=== PATIENT | male | born 1950 | race Caucasian/White ===

== ENCOUNTER 2020-12-15 22:41 | Emergency (ER) | payer MEDICARE, BC ==
--- NOTE | 2020-12-15 23:11 | ED ---
Recheck HPI - General Chief Complaint: Recheck/Abnormal Lab/Rx Stated Complaint: Abn Labs Time Seen by Provider: 12/15/20 23:04 Source: patient, RN notes reviewed Mode of arrival: ambulatory Limitations: no limitations - History of Present Illness Initial Comments: 70-year-old male presents emergency Department with chief complaint of abnormal labs. Patient states he received a phone call stating that his potassium was 5.8. does not take any potassium supplements. Patient states she's had no new medication changes he does have a history of A. fib on Coumadin. Denies any active bleeding no chest pain no palpitations - Related Data Allergies Allergy/AdvReac Type Severity Reaction Status Date / Time No Known Allergies Allergy Verified 12/15/20 22:55 Review of Systems ROS Statement: Those systems with pertinent positive or pertinent negative responses have been documented in the HPI. ROS Other: All systems not noted in ROS Statement are negative. Past Medical History Past Medical History: Atrial Fibrillation, Diabetes Mellitus, Hyperlipidemia History of Any Multi-Drug Resistant Organisms: None Reported Past Surgical History: Cholecystectomy Past Psychological History: No Psychological Hx Reported Smoking Status: Never smoker Past Alcohol Use History: Rare Past Drug Use History: None Reported General Exam Limitations: no limitations General appearance: alert, in no apparent distress Head exam: Present: atraumatic, normocephalic, normal inspection Neck exam: Present: normal inspection. Absent: tenderness, meningismus, lymphadenopathy Respiratory exam: Present: normal lung sounds bilaterally. Absent: respiratory distress, wheezes, rales, rhonchi, stridor Cardiovascular Exam: Present: regular rate, normal rhythm, normal heart sounds. Absent: systolic murmur, diastolic murmur, rubs, gallop, clicks GI/Abdominal exam: Present: soft, normal bowel sounds. Absent: distended, tenderness, guarding, rebound, rigid Course Vital Signs 12/15/20 22:51 Temperature 98.1 F Pulse Rate 89 Respiratory 20 Rate Blood Pressure 127/87 O2 Sat by Pulse 99 Oximetry Medical Decision Making - Medical Decision Making Labs were rechecked there is no evidence of hyperkalemia patient be discharged in stable condition - Lab Data Result diagrams: 12/15/20 23:09 12/15/20 23:09 Lab Results 12/15/20 12/15/20 12/15/20 Range/Units 23:09 23:09 23:22 WBC 7.1 (3.8-10.6) k/uL RBC 5.02 (4.30-5.90) m/uL Hgb 15.7 (13.0-17.5) gm/dL Hct 45.9 (39.0-53.0) % MCV 91.5 (80.0-100.0) fL MCH 31.2 (25.0-35.0) pg MCHC 34.1 (31.0-37.0) g/dL RDW 13.7 (11.5-15.5) % Plt Count 311 (150-450) k/uL MPV 6.4 Neutrophils % 61 % Lymphocytes % 29 % Monocytes % 6 % Eosinophils % 1 % Basophils % 1 % Neutrophils # 4.4 (1.3-7.7) k/uL Lymphocytes # 2.1 (1.0-4.8) k/uL Monocytes # 0.4 (0-1.0) k/uL Eosinophils # 0.1 (0-0.7) k/uL Basophils # 0.1 (0-0.2) k/uL PT 19.0 H (9.0-12.0) sec INR 1.9 H (<1.2) Sodium 135 L (137-145) mmol/L Potassium 4.3 (3.5-5.1) mmol/L Chloride 101 (98-107) mmol/L Carbon Dioxide 24 (22-30) mmol/L Anion Gap 10 mmol/L BUN 16 (9-20) mg/dL Creatinine 0.83 (0.66-1.25) mg/dL Est GFR (CKD-EPI)AfAm >90 (>60 ml/min/1.73 sqM) Est GFR (CKD-EPI)NonAf 89 (>60 ml/min/1.73 sqM) Glucose 161 H (74-99) mg/dL Calcium 9.7 (8.4-10.2) mg/dL Disposition Clinical Impression: Encounter for laboratory examination Disposition: HOME SELF-CARE Condition: Stable Additional Instructions: Please return to the Emergency Department if symptoms worsen or any other concerns. Is patient prescribed a controlled substance at d/c from ED?: No Referrals: [facility],Clinic [Primary Care Provider] - 1-2 days Time of Disposition: 00:20
[2020-12-15 23:38] LABS: INR 1.9 (<1.2)
[2020-12-15 23:44] LABS: Basophils # (A) 0.1 k/uL (0-0.2); Basophils % (A) 1 %; Eosinophils # (A) 0.1 k/uL (0-0.7); Eosinophils % (A) 1 %; HCT 45.9 % (39.0-53.0); HGB 15.7 gm/dL (13.0-17.5); Lymphocytes # (A) 2.1 k/uL (1.0-4.8); Lymphocytes % (A) 29 %; MCH 31.2 pg (25.0-35.0); MCHC 34.1 g/dL (31.0-37.0); MCV 91.5 fL (80.0-100.0); Mean Platelet Volume 6.4; Monocytes # (A) 0.4 k/uL (0-1.0); Monocytes % (A) 6 %; Neutrophils # (A) 4.4 k/uL (1.3-7.7); Neutrophils % (A) 61 %; Platelet Count 311 k/uL (150-450); RBC 5.02 m/uL (4.30-5.90); RDW 13.7 % (11.5-15.5); WBC 7.1 k/uL (3.8-10.6)
[2020-12-15 23:51] LABS: African American GFR (CKD) >90 (>60 ml/min/1.73 sqM); Anion Gap 10 mmol/L; Blood Urea Nitrogen 16 mg/dL (9-20); Calcium 9.7 mg/dL (8.4-10.2); Carbon Dioxide 24 mmol/L (22-30); Chloride 101 mmol/L (98-107); Glucose 161 mg/dL (74-99); Non-African American GFR(CKD) 89 (>60 ml/min/1.73 sqM); Potassium 4.3 mmol/L (3.5-5.1); Sodium 135 mmol/L (137-145)
[2020-12-16 00:20] VITALS: BP 133/97; PULSE 82; RESP 18; TEMP 98
== END 2020-12-16 00:25 | disposition home or self-care (01) ==
LOC: EC 22:41
DX: Z00.00 Encounter for general adult medical examination without abnormal findings (principal); E11.9 Type 2 diabetes mellitus without complications; I48.91 Unspecified atrial fibrillation; Z79.01 Long term (current) use of anticoagulants
CPT/HCPCS: 36415; 80048; 85025; 85610; 99282

== ENCOUNTER 2024-01-07 11:44 | Emergency (ER) | payer MEDICARE, BC ==
[2024-01-07 12:12] VITALS: RESP 16
[2024-01-07 12:40] LABS: Appearance,Urine Cloudy (Clear); Bilirubin,Urine Negative (Negative); Blood,Urine Large (Negative); Color,Urine Light Yellow; Glucose,Urine (UA) 4+ (Negative); Ketones,Urine Negative (Negative); Leukocyte Esterase,Urine Large (Negative); Nitrite,Urine Negative (Negative); Protein,Urine Trace (Negative); RBC,Urine >182 /hpf (0-5); Specific Gravity,Urine 1.029 (1.001-1.035); Urobilinogen,Urine <2.0 mg/dL (<2.0); WBC,Urine >182 /hpf (0-5)
[2024-01-07] MEDS: PHENAZOPYRIDINE 200 MG TAB PO STA (12:46)
--- NOTE | 2024-01-07 13:20 | ED ---
General Adult HPI - General Chief complaint: Urogenital Stated complaint: Blood in urine Time Seen by Provider: 01/07/24 12:13 Source: patient Mode of arrival: ambulatory Limitations: no limitations - History of Present Illness Initial comments: 73-year-old male presents emergency department with sudden onset dysuria and hematuria. States that his symptoms started this morning. He has urge incontinence. He denies ever having symptoms like this before. No history of kidney stones. Denies any flank pain. Denies suprapubic pain. Does have pain at the end of voiding. No penile discharge. No testicular pain or swelling. Denies any changes with his bowel habits to include diarrhea, constipation, black or bloody stools. No other alleviating, precipitating or modifying factors - Related Data Previous Rx's Medication Instructions Recorded Cephalexin [Keflex] 500 mg PO Q6HR #28 cap 01/07/24 Phenazopyridine [Pyridium] 200 mg PO TID #6 tablet 01/07/24 Allergies Allergy/AdvReac Type Severity Reaction Status Date / Time No Known Allergies Allergy Verified 12/15/20 22:55 Review of Systems ROS Statement: Those systems with pertinent positive or pertinent negative responses have been documented in the HPI. ROS Other: All systems not noted in ROS Statement are negative. Past Medical History Past Medical History: Atrial Fibrillation, Diabetes Mellitus, Hyperlipidemia History of Any Multi-Drug Resistant Organisms: None Reported Past Surgical History: Cholecystectomy Past Psychological History: No Psychological Hx Reported Smoking Status: Never smoker Past Alcohol Use History: Rare Past Drug Use History: None Reported General Exam Limitations: no limitations General appearance: alert, in no apparent distress Head exam: Present: atraumatic, normocephalic, normal inspection Eye exam: Present: normal appearance, PERRL, EOMI. Absent: scleral icterus, conjunctival injection, periorbital swelling ENT exam: Present: normal exam, mucous membranes moist Neck exam: Present: normal inspection. Absent: tenderness, meningismus, ly mphadenopathy Respiratory exam: Present: normal lung sounds bilaterally. Absent: respiratory distress, wheezes, rales, rhonchi, stridor Cardiovascular Exam: Present: regular rate, normal rhythm, normal heart sounds. Absent: systolic murmur, diastolic murmur, rubs, gallop, clicks GI/Abdominal exam: Present: soft, normal bowel sounds. Absent: distended, tenderness, guarding, rebound, rigid Extremities exam: Present: normal inspection, full ROM, normal capillary refill. Absent: tenderness, pedal edema, joint swelling, calf tenderness Back exam: Present: normal inspection Neurological exam: Present: alert, oriented X3, CN II-XII intact Psychiatric exam: Present: normal affect, normal mood Skin exam: Present: warm, dry, intact, normal color. Absent: rash Course Vital Signs 01/07/24 01/07/24 12:10 13:32 Temperature 97.8 F 98.1 F Pulse Rate 87 82 Respiratory 16 16 Rate Blood Pressure 110/70 136/76 O2 Sat by Pulse 98 98 Oximetry Medical Decision Making - Medical Decision Making Was pt. sent in by a medical professional or institution (, PA, DRIER OPERATOR, urgent care, hospital, or fdc...) When possible be specific @ -No Did you speak to anyone other than the patient for history (EMS, parent, family, police, friend...)? What history was obtained from this source @ -No Did you review nursing and triage notes (agree or disagree)? Why? @ -I reviewed and agree with nursing and triage notes Were old charts reviewed (outside hosp., previous admission, EMS record, old EKG, old radiological studies, urgent care reports/EKG's, fdc records)? Report findings @ -No old charts were reviewed Differential Diagnosis (chest pain, altered mental status, abdominal pain women, abdominal pain men, vaginal bleeding, weakness, fever, dyspnea, syncope, headache, dizziness, GI bleed, back pain, seizure, CVA, palpatations, mental health, musculoskeletal)? @ -Differential Abdominal Pain Men: Appendicitis, cholecystitis, diverticulosis, ischemic bowel, pancreatitis, hepatitis, UTI, gastroenteritis, AAA, incarcerated hernia, bowel obstruction, constipation, inflammatory bowel, hepatitis, peptic ulcer disease, splenic infarction, perforated viscus, testicular torsion, this is not meant to be an all-inclusive list EKG interpreted by me (3pts min.). @ -Not done X-rays interpreted by me (1pt min.). @ -None done CT interpreted by me (1pt min.). @ -None done U/S interpreted by me (1pt. min.). @ -None done What testing was considered but not performed or refused? (CT, X-rays, U/S, labs)? Why? @ -None What meds were considered but not given or refused? Why? @ -None Did you discuss the management of the patient with other professionals (victor manuel valente i.e. , PA, DRIER OPERATOR, lab, RT, psych nurse, psychosocial rehabilitation counselor, hard hat diver, teacher, chief knowledge officer, case work aide)? Give summary @ -No Was smoking cessation discussed for >3mins.? @ -No Was critical care preformed (if so, how long)? @ -No Were there social determinants of health that impacted care today? How? (Homelessness, low income, unemployed, alcoholism, drug addiction, transportation, low edu. Level, literacy, decrease access to med. care, [facility], rehab)? @ -No Was there de-escalation of care discussed even if they declined (Discuss DNR or withdrawal of care, Hospice)? DNR status @ -No What co-morbidities impacted this encounter? (DM, HTN, Smoking, COPD, CAD, Cancer, CVA, ARF, Chemo, Hep., AIDS, mental health diagnosis, sleep apnea, morbid obesity)? @ -None Was patient admitted / discharged? Hospital course, mention meds given and route, prescriptions, significant lab abnormalities, going to OR and other pertinent info. @ -Upon arrival patient seen and evaluated. Thorough history was performed. Patient does provide a urine sample which is grossly positive for infection. Patient will be initiated on antibiotics. Also given Pyridium. Patient is to take the medications as directed. Follow-up with his doctor to ensure his symptoms have resolved and return for any new or worsening symptoms. Patient agreeable plan he was discharged in stable condition Undiagnosed new problem with uncertain prognosis? @ -No Drug Therapy requiring intensive monitoring for toxicity (Heparin, Nitro, Insulin, Cardizem)? @ -No Were any procedures done? @ -No Diagnosis/symptom? @ -Acute hematuria, acute UTI Acute, or Chronic, or Acute on Chronic? @ -Acute Uncomplicated (without systemic symptoms) or Complicated (systemic symptoms)? @ -Complicated Side effects of treatment? @ -No Exacerbation, Progression, or Severe Exacerbation? @ -No Poses a threat to life or bodily function? How? (Chest pain, [place], [place], pneumonia, PE, COPD, DKA, ARF, appy, cholecystitis, CVA, Diverticulitis, Homicidal, Suicidal, threat to staff... and all critical care pts) @ -No - Lab Data Lab Results 01/07/24 Range/Units 12:28 Urine Color Light Yellow Urine Appearance Cloudy (Clear) Urine pH 5.0 (5.0-8.0) Ur Specific [place] 1.029 (1.001-1.035) Urine Protein Trace H (Negative) Urine Glucose (UA) 4+ H (Negative) Urine Ketones Negative (Negative) Urine Blood Large H (Negative) Urine Nitrite Negative (Negative) Urine Bilirubin Negative (Negative) Urine Urobilinogen <2.0 (<2.0) mg/dL Ur Leukocyte Esterase Large H (Negative) Urine RBC >182 H (0-5) /hpf Urine WBC >182 H (0-5) /hpf Disposition Clinical Impression: Abnormal urinalysis, UTI (urinary tract infection) Disposition: HOME SELF-CARE Condition: Stable Instructions (If sedation given, give patient instructions): Urinary Tract Infection in Men (ED) Additional Instructions: Take the medications as prescribed. Follow up with your doctor to have repeat sampling performed. Prescriptions: Cephalexin [Keflex] 500 mg PO Q6HR #28 cap Phenazopyridine [Pyridium] 200 mg PO TID #6 tablet Is patient prescribed a controlled substance at d/c from ED?: No Referrals: [facility],Clinic [Primary Care Provider] - 1-2 days Time of Disposition: 13:20
[2024-01-07 13:34] VITALS: BP 136/76; PULSE 82; TEMP 98.1
== END 2024-01-07 12:22 | disposition home or self-care (01) ==
LOC: EC 11:44
DX: R31.9 Hematuria, unspecified
CPT/HCPCS: 81001; 87077; 87086; 87186; 99283

== ENCOUNTER 2024-05-08 10:12 | Emergency (ER) | payer MEDICARE, BC ==
[2024-05-08 10:41] VITALS: RESP 18
--- NOTE | 2024-05-08 10:46 | ED ---
General Adult HPI - General Chief complaint: Urogenital Stated complaint: UTI Time Seen by Provider: 05/08/24 10:45 Source: patient, RN notes reviewed, old records reviewed Mode of arrival: ambulatory Limitations: no limitations - History of Present Illness Initial comments: 73-year-old male presenting with urinary frequency and urgency. Patient denies dysuria, states he has been drinking a lot of water and has been off of his glipizide and metformin. Patient was sent by OR for evaluation of UTI versus urinary retention. Patient states he has had prostate issues in the past. Patient is a diabetic. No fever. No significant abdominal pain. - Related Data Previous Rx's Medication Instructions Recorded Cephalexin [Keflex] 500 mg PO Q6HR #28 cap 01/07/24 Phenazopyridine [Pyridium] 200 mg PO TID #6 tablet 01/07/24 Allergies Allergy/AdvReac Type Severity Reaction Status Date / Time No Known Allergies Allergy Verified 05/08/24 10:37 Review of Systems ROS Statement: Those systems with pertinent positive or pertinent negative responses have been documented in the HPI. ROS Other: All systems not noted in ROS Statement are negative. Past Medical History Past Medical History: Atrial Fibrillation, Diabetes Mellitus, Hyperlipidemia History of Any Multi-Drug Resistant Organisms: None Reported Past Surgical History: Cholecystectomy Past Psychological History: No Psychological Hx Reported Smoking Status: Never smoker Past Alcohol Use History: Rare Past Drug Use History: None Reported General Exam Limitations: no limitations General appearance: alert, in no apparent distress Head exam: Present: atraumatic, normocephalic Eye exam: Present: normal appearance, PERRL ENT exam: Present: normal exam Neck exam: Present: normal inspection. Absent: tenderness, meningismus Respiratory exam: Present: normal lung sounds bilaterally. Absent: respiratory distress, wheezes Cardiovascular Exam: Present: regular rate, normal rhythm GI/Abdominal exam: Present: soft. Absent: distended, tenderness Neurological exam: Present: alert, oriented X3 Psychiatric exam: Present: normal affect, normal mood Skin exam: Present: warm, dry, intact Course Vital Signs 05/08/24 10:37 Temperature 97.3 F L Pulse Rate 89 Respiratory 18 Rate Blood Pressure 118/80 O2 Sat by Pulse 99 Oximetry - Reevaluation(s) Reevaluation #1: 05/08/24 12:20 Bladder scan revealing maximum of 200 cc of urine Medical Decision Making - Medical Decision Making Was pt. sent in by a medical professional or institution (MICHELLE Whyte, ASSOCIATE PRODUCER, urgent care, hospital, or senior living...) When possible be specific @ -No Did you speak to anyone other than the patient for history (EMS, parent, family, police, friend...)? What history was obtained from this source @ -No Did you review nursing and triage notes (agree or disagree)? Why? @ -I reviewed and agree with nursing and triage notes Were old charts reviewed (outside hosp., previous admission, EMS record, old EKG , old radiological studies, urgent care reports/EKG's, senior living records)? Report findings @ -No old charts were reviewed Differential Diagnosis: Urinary retention, UTI, hyperglycemia EKG interpreted by me (3pts min.). @ -As above X-rays interpreted by me (1pt min.). @ -None done CT interpreted by me (1pt min.). @ -None done U/S interpreted by me (1pt. min.). @ -None done What testing was considered but not performed or refused? (CT, X-rays, U/S, labs)? Why? @ -None What meds were considered but not given or refused? Why? @ -None Did you discuss the management of the patient with other professionals (professionals i.e. MICHELLE Whyte, ASSOCIATE PRODUCER, lab, RT, psych nurse, social and political studies professor, animal bounty hunter, teacher, credit officer, shoe parts caser)? Give summary @ -No Was smoking cessation discussed for >3mins.? @ -No Was critical care preformed (if so, how long)? @ -No Were there social determinants of health that impacted care today? How? (Homelessness, low income, unemployed, alcoholism, drug addiction, transportation, low edu. Level, literacy, decrease access to med. care, [facility], rehab)? @ -No Was there de-escalation of care discussed even if they declined (Discuss DNR or withdrawal of care, Hospice)? DNR status @ -No What co-morbidities impacted this encounter? (DM, HTN, Smoking, COPD, CAD, Cancer, CVA, ARF, Chemo, Hep., AIDS, mental health diagnosis, sleep apnea, morbid obesity)? @ -None Was patient admitted / discharged? Hospital course, mention meds given and route, prescriptions, significant lab abnormalities, going to OR and other pertinent info. @ -73-year-old male with urinary frequency and urgency. Patient is a diabetic and has been off of his glipizide and metformin. He has no dysuria. No fever. No lower abdominal pain. Bladder scan reveals maximum urine volume of 200. He has a urinalysis which shows 4+ glucose without signs of infection. His blood glucose is 300. I suspect his urinary frequency and urgency is from hyperglycemia. He is instructed to start his glipizide and metformin again which she has been off of. And he should follow-up with his primary care provider. Undiagnosed new problem with uncertain prognosis? @ -No Drug Therapy requiring intensive monitoring for toxicity (Heparin, Nitro, Insulin, Cardizem)? @ -No Were any procedures done? @ -No Diagnosis/symptom? @Polyuria, polydipsia, hyperglycemia Acute, or Chronic, or Acute on Chronic? @ -[Acute on chronic Uncomplicated (without systemic symptoms) or Complicated (systemic symptoms)? @ -Default Side effects of treatment? @ -No Exacerbation, Progression, or Severe Exacerbation? @ -No Poses a threat to life or bodily function? How? (Chest pain, [place], [place], pneumonia, PE, COPD, DKA, ARF, appy, cholecystitis, CVA, Diverticulitis, Homicidal, Suicidal, threat to staff... and all critical care pts) @ -No - Lab Data Lab Results 05/08/24 05/08/24 Range/Units 11:07 12:25 POC Glucose (mg/dL) 308 H (70-110) mg/dL POC Glu Back Gray Cloth Washer ID Mindy Caldwell Urine Color Colorless Urine Appearance Clear (Clear) Urine pH 5.0 (5.0-8.0) Ur Specific [place] 1.031 (1.001-1.035) Urine Protein Negative (Negative) Urine Glucose (UA) 4+ H (Negative) Urine Ketones Trace H (Negative) Urine Blood Negative (Negative) Urine Nitrite Negative (Negative) Urine Bilirubin Negative (Negative) Urine Urobilinogen <2.0 (<2.0) mg/dL Ur Leukocyte Esterase Negative (Negative) Disposition Clinical Impression: Hyperglycemia Disposition: HOME SELF-CARE Condition: Fair Instructions (If sedation given, give patient instructions): Diabetic Hyperglycemia (ED) Additional Instructions: Please continue to drink plenty of water. Please take your diabetic medications as prescribed. Is patient prescribed a controlled substance at d/c from ED?: No Referrals: Froilan Burrell DO [Primary Care Provider] - 1-2 days Time of Disposition: 12:40
[2024-05-08 12:01] LABS: Appearance,Urine Clear (Clear); Bilirubin,Urine Negative (Negative); Blood,Urine Negative (Negative); Color,Urine Colorless; Glucose,Urine (UA) 4+ (Negative); Ketones,Urine Trace (Negative); Leukocyte Esterase,Urine Negative (Negative); Nitrite,Urine Negative (Negative); Protein,Urine Negative (Negative); Specific Gravity,Urine 1.031 (1.001-1.035); Urobilinogen,Urine <2.0 mg/dL (<2.0)
[2024-05-08 12:26] LABS: Glucose,Whole Blood 308 mg/dL (70-110)
[2024-05-08 13:40] VITALS: BP 131/96; PULSE 92; TEMP 98
== END 2024-05-08 13:56 | disposition home or self-care (01) ==
LOC: EC 10:12
DX: R73.9 Hyperglycemia, unspecified (principal); R35.89 Other polyuria; R63.1 Polydipsia; Z90.49 Acquired absence of other specified parts of digestive tract
CPT/HCPCS: 36415; 51798; 81003; 99284

== ENCOUNTER 2024-06-13 09:41 | Observation (INO) | payer OTHER, MEDICARE, BC ==
[2024-06-13 09:46] LABS: Glucose,Whole Blood 174 mg/dL (70-110)
[2024-06-13 10:19] LABS: Basophils % (A) 0 %; Eosinophils # (A) 0.1 k/uL (0-0.7); Eosinophils % (A) 1 %; HCT 44.2 % (39.0-53.0); HGB 13.9 gm/dL (13.0-17.5); Lymphocytes # (A) 0.9 k/uL (1.0-4.8); Lymphocytes % (A) 9 %; MCH 29.6 pg (25.0-35.0); MCHC 31.5 g/dL (31.0-37.0); MCV 94.2 fL (80.0-100.0); Mean Platelet Volume 6.5; Monocytes # (A) 0.6 k/uL (0-1.0); Monocytes % (A) 6 %; Neutrophils # (A) 8.3 k/uL (1.3-7.7); Neutrophils % (A) 82 %; Platelet Count 428 k/uL (150-450); RBC 4.69 m/uL (4.30-5.90); RDW 13.9 % (11.5-15.5); WBC 10.1 k/uL (3.8-10.6)
[2024-06-13 10:20] LABS: VBG PH 7.35 (7.31-7.41)
[2024-06-13 10:37] LABS: ALT 17 U/L (4-49); AST 21 U/L (17-59); African American GFR (CKD) >90 (>60 ml/min/1.73 sqM); Albumin 3.8 g/dL (3.5-5.0); Alkaline Phosphatase 106 U/L (38-126); Anion Gap 18 mmol/L; Blood Urea Nitrogen 12 mg/dL (9-20); Calcium 9.5 mg/dL (8.4-10.2); Carbon Dioxide 17 mmol/L (22-30); Chloride 98 mmol/L (98-107); Glucose 230 mg/dL (74-99); Non-African American GFR(CKD) >90 (>60 ml/min/1.73 sqM); Potassium 5.1 mmol/L (3.5-5.1); Sodium 133 mmol/L (137-145); Total Bilirubin 0.8 mg/dL (0.2-1.3); Total Protein 6.8 g/dL (6.3-8.2)
--- NOTE | 2024-06-13 10:39 | ED ---
General Adult HPI - General Chief complaint: Recheck/Abnormal Lab/Rx Stated complaint: Abn labs Time Seen by Provider: 06/13/24 09:42 Source: patient, RN notes reviewed, old records reviewed Mode of arrival: ambulatory Limitations: no limitations - History of Present Illness Initial comments: 73-year-old male presenting with elevated blood sugar. [facility]. Patient is currently on metformin, glipizide, and was ordered to start Ozempic but has not started this medication yet. He denies vomiting. He states he has been more thirsty lately. No fever. - Related Data Previous Rx's Medication Instructions Recorded Cephalexin [Keflex] 500 mg PO Q6HR #28 cap 01/07/24 Phenazopyridine [Pyridium] 200 mg PO TID #6 tablet 01/07/24 Allergies Allergy/AdvReac Type Severity Reaction Status Date / Time No Known Allergies Allergy Verified 06/13/24 09:44 Review of Systems ROS Statement: Those systems with pertinent positive or pertinent negative responses have been documented in the HPI. ROS Other: All systems not noted in ROS Statement are negative. Past Medical History Past Medical History: Atrial Fibrillation, Diabetes Mellitus, Hyperlipidemia History of Any Multi-Drug Resistant Organisms: None Reported Past Surgical History: Cholecystectomy Past Psychological History: No Psychological Hx Reported Smoking Status: Never smoker Past Alcohol Use History: Rare Past Drug Use History: None Reported General Exam Limitations: no limitations General appearance: alert, in no apparent distress Head exam: Present: atraumatic, normocephalic Eye exam: Present: normal appearance, PERRL ENT exam: Present: mucous membranes moist Neck exam: Present: normal inspection. Absent: tenderness, meningismus Respiratory exam: Present: normal lung sounds bilaterally. Absent: respiratory distress, wheezes Cardiovascular Exam: Present: regular rate, normal rhythm GI/Abdominal exam: Present: soft. Absent: distended, tenderness, guarding Extremities exam: Present: normal inspection, normal capillary refill Neurological exam: Present: alert, oriented X3 Psychiatric exam: Present: normal affect, normal mood Skin exam: Present: warm, dry, intact. Absent: cyanosis, diaphoretic Course Vital Signs 06/13/24 09:42 Temperature 97.4 F L Pulse Rate 58 L Respiratory 20 Rate Blood Pressure 149/84 O2 Sat by Pulse 99 Oximetry Medical Decision Making - Medical Decision Making Was pt. sent in by a medical professional or institution (MICHELLE Whyte, [employer]ER, urgent care, hospital, or [place] health care facility...) When possible be specific @ -No Did you speak to anyone other than the patient for history (EMS, parent, family, police, friend...)? What history was obtained from this source @ -No Did you review nursing and triage notes (agree or disagree)? Why? @ -I reviewed and agree with nursing and triage notes Were old charts reviewed (outside hosp., previous admission, EMS record, old EKG, old radiological studies, urgent care reports/EKG's, [place] health care facility records)? Report findings @ -No old charts were reviewed Differential Diagnosis : DKA, dehydration, hyperglycemia EKG interpreted by me (3pts min.). @ -As above X-rays interpreted by me (1pt min.). @ -None done CT interpreted by me (1pt min.). @ -None done U/S interpreted by me (1pt. min.). @ -None done What testing was considered but not performed or refused? (CT, X-rays, U/S, labs)? Why? @ -None What meds were considered but not given or refused? Why? @ -None Did you discuss the management of the patient with other professionals (professionals i.e. MICHELLE Whyte, [employer]CTURER, lab, RT, psych nurse, social media director, auricular acupuncturist, teacher, aviation ordnance officer, insurance case manager)? Give summary @ -[Dr. Landa Was smoking cessation discussed for >3mins.? @ -No Was critical care preformed (if so, how long)? @ -No Were there social determinants of health that impacted care today? How? (Homelessness, low income, unemployed, alcoholism, drug addiction, transportation, low edu. Level, literacy, decrease access to med. care, [facility], rehab)? @ -No Was there de-escalation of care discussed even if they declined (Discuss DNR or withdrawal of care, Hospice)? DNR status @ -No What co-morbidities impacted this encounter? (DM, HTN, Smoking, COPD, CAD, Cancer, CVA, ARF, Chemo, Hep., AIDS, mental health diagnosis, sleep apnea, morbid obesity)? @ -Diabetes Was patient admitted / discharged? Hospital course, mention meds given and route, prescriptions, significant lab abnormalities, going to OR and other pertinent info. @ -[73-year-old male presenting with concern for DKA due to abnormal labs on outpatient testing. Patient's blood sugars 230. He has a sodium 133. He has a CO2 of 17 and an anion gap of 18. He is acetone positive. These labs represent mild diabetic ketoacidosis. Patient is given IV fluid and IV insulin. Redraw of laboratory test will be performed and 2 hours after administration of insulin and fluids. Patient admitted to [facility] for further evaluation and treatment of mild DKA. Undiagnosed new problem with uncertain prognosis? @ -No Drug Therapy requiring intensive monitoring for toxicity (Heparin, Nitro, Insulin, Cardizem)? @ -No Were any procedures done? @ -No Diagnosis/symptom? @ -[DKA Acute, or Chronic, or Acute on Chronic? @ -acute Uncomplicated (without systemic symptoms) or Complicated (systemic symptoms)? @ -Default Side effects of treatment? @ -No Exacerbation, Progression, or Severe Exacerbation? @ -No Poses a threat to life or bodily function? How? (Chest pain, [place], [place], pneumonia, PE, COPD, DKA, ARF, appy, cholecystitis, CVA, Diverticulitis, Homicidal, Suicidal, threat to staff... and all critical care pts) @ -yes, DKA - Lab Data Result diagrams: 06/13/24 10:07 06/13/24 10:07 Lab Results 06/13/24 06/13/24 06/13/24 Range/Units 09:45 10:07 10:07 WBC 10.1 (3.8-10.6) k/uL RBC 4.69 (4.30-5.90) m/uL Hgb 13.9 (13.0-17.5) gm/dL Hct 44.2 (39.0-53.0) % MCV 94.2 (80.0-100.0) fL MCH 29.6 (25.0-35.0) pg MCHC 31.5 (31.0-37.0) g/dL RDW 13.9 (11.5-15.5) % Plt Count 428 (150-450) k/uL MPV 6.5 Neutrophils % 82 % Lymphocytes % 9 % Monocytes % 6 % Eosinophils % 1 % Basophils % 0 % Neutrophils # 8.3 H (1.3-7.7) k/uL Lymphocytes # 0.9 L (1.0-4.8) k/uL Monocytes # 0.6 (0-1.0) k/uL Eosinophils # 0.1 (0-0.7) k/uL Basophils # 0.0 (0-0.2) k/uL VBG pH (7.31-7.41) VBG pCO2 (37-51) mmHg VBG HCO3 (24-28) mmol/L Sodium 133 L (137-145) mmol/L Potassium 5.1 (3.5-5.1) mmol/L Chloride 98 (98-107) mmol/L Carbon Dioxide 17 L (22-30) mmol/L Anion Gap 18 mmol/L BUN 12 (9-20) mg/dL Creatinine 0.62 L (0.66-1.25) mg/dL Est GFR (CKD-EPI)AfAm >90 (>60 ml/min/1.73 sqM) Est GFR (CKD-EPI)NonAf >90 (>60 ml/min/1.73 sqM) Glucose 230 H (74-99) mg/dL POC Glucose (mg/dL) 174 H (70-110) mg/dL POC Glu Motorcycle Designer ID Padmini Lindsay Calcium 9.5 (8.4-10.2) mg/dL Total Bilirubin 0.8 (0.2-1.3) mg/dL AST 21 (17-59) U/L ALT 17 (4-49) U/L Alkaline Phosphatase 106 (38-126) U/L Total Protein 6.8 (6.3-8.2) g/dL Albumin 3.8 (3.5-5.0) g/dL Acetone, Qual Positive (Negative) 06/13/24 Range/Units 10:07 WBC (3.8-10.6) k/uL RBC (4.30-5.90) m/uL Hgb (13.0-17.5) gm/dL Hct (39.0-53.0) % MCV (80.0-100.0) fL MCH (25.0-35.0) pg MCHC (31.0-37.0) g/dL RDW (11.5-15.5) % Plt Count (150-450) k/uL MPV Neutrophils % % Lymphocytes % % Monocytes % % Eosinophils % % Basophils % % Neutrophils # (1.3-7.7) k/uL Lymphocytes # (1.0-4.8) k/uL Monocytes # (0-1.0) k/uL Eosinophils # (0-0.7) k/uL Basophils # (0-0.2) k/uL VBG pH 7.35 (7.31-7.41) VBG pCO2 35 L (37-51) mmHg VBG HCO3 19 L (24-28) mmol/L Sodium (137-145) mmol/L Potassium (3.5-5.1) mmol/L Chloride (98-107) mmol/L Carbon Dioxide (22-30) mmol/L Anion Gap mmol/L BUN (9-20) mg/dL Creatinine (0.66-1.25) mg/dL Est GFR (CKD-EPI)AfAm (>60 ml/min/1.73 sqM) Est GFR (CKD-EPI)NonAf (>60 ml/min/1.73 sqM) Glucose (74-99) mg/dL POC Glucose (mg/dL) (70-110) mg/dL POC Glu Motorcycle Designer ID Calcium (8.4-10.2) mg/dL Total Bilirubin (0.2-1.3) mg/dL AST (17-59) U/L ALT (4-49) U/L Alkaline Phosphatase (38-126) U/L Total Protein (6.3-8.2) g/dL Albumin (3.5-5.0) g/dL Acetone, Qual (Negative) Disposition Clinical Impression: DKA (diabetic ketoacidosis) Disposition: ADMITTED IP TO THIS HOSP Condition: Stable Is patient prescribed a controlled substance at d/c from ED?: No Referrals: Froilan Burrell DO [Primary Care Provider] - 1-2 days Time of Disposition: 12:05
[2024-06-13] MEDS: SODIUM CHLORIDE 0.9% 1,000 ML IV ONE ×2 (10:47→16:22)
[2024-06-13 11:31] LABS: Appearance,Urine Clear (Clear); Bilirubin,Urine Negative (Negative); Blood,Urine Negative (Negative); Color,Urine Colorless; Glucose,Urine (UA) 4+ (Negative); Leukocyte Esterase,Urine Negative (Negative); Nitrite,Urine Negative (Negative); Protein,Urine Negative (Negative); Specific Gravity,Urine 1.035 (1.001-1.035); Urobilinogen,Urine <2.0 mg/dL (<2.0)
[2024-06-13] MEDS: INSULIN REGULAR 100 UNIT/ML VIAL (IV) IV ONE ×2 (11:54→16:22)
[2024-06-13] MEDS: SODIUM CHLORIDE 0.9% 500 ML 500 ML IV ONE (12:01)
[2024-06-13] MEDS ORDERED: ACETAMINOPHEN TAB 325 MG TAB PO PRN (12:01)
[2024-06-13] MEDS ORDERED: NALOXONE 0.4 MG/ML 1 ML VIAL IV PRN (12:01)
[2024-06-13] MEDS: SODIUM CHLORIDE 0.9% 1,000 ML IV SCH (12:14)
[2024-06-13 12:16] LABS: Ketones,Urine 2+ (Negative)
[2024-06-13] MEDS ORDERED: ONDANSETRON 4 MG/2 ML VIAL IVP PRN (13:32)
[2024-06-13] MEDS ORDERED: MELATONIN 3 MG TABLET PO PRN (13:32)
[2024-06-13 14:29] LABS: Glucose,Whole Blood 213 mg/dL (70-110)
[2024-06-13] MEDS ORDERED: DEXTROSE 50% SYRINGE 50 ML IVP PRN ×2 (14:34)
--- NOTE | 2024-06-13 14:35 | P.HPIM ---
History of Present Illness H&P Date: 06/13/24 73 year old M with PMH of DM, A-Fib, HLD presents to the ED after being told to come [facility] for [facility] work. Patient reports painful urination with urinary frequency, hesitancy and weak flow. He reports his A1c to be around 13. He reports BG ranging usually in the 200s. He is on Metformin and Glipizide. He is supposed to start taking Ozempic but has not had the chance to start yet. He denies any headache, LE edema, N/V, fever or chills, abdominal pain, chest pain, shortness of breath, palpitations, changes in bowel habits. No changes in appetite or weight. No numbness/weakness/tinging of the extremities. In the ED he underwent extensive evaluation. BP 149/84, HR 58, T 97.4F, RR 20, 99% on RA. CBC, Coag panel, CMP significant for Na 133, bicarb 17, Cr 0.62, glu 230. UA 4+ glucose and 2+ ketones. Acetone positive. Given 5 units IV insulin and admitted for further workup and management. General: non toxic, no distress, appears at stated age Derm: warm, dry Head: atraumatic, normocephalic, symmetric Mouth: no lip lesion, mucus membranes moist Cardiovascular: S1S2 reg, no murmur Lungs: Clear to auscultation bilaterally, no rales , no accessory muscle use Ext: no gross muscle atrophy, no edema, no contractures Neuro: no focal neuro deficits Psych: Alert and oriented. Based on my assessment of this patient, this patient meets a high complexity level of care. Euglycemic DKA: Likely related to Jardiance. Status post 5 units IV insulin. Repeat BMP pending. Continue NS at 100 cc/hr. ISS with accuchecks ACHS. Hypoglycemic precautions. HTN: Losartan 25 mg PO QD. Metoprolol 12.5 mg PO BID. HLD: Lovastatin 40 mg PO QD. Depression and Anxiety: Prozac 60 mg PO QD. Xanax 0.25 mg PO BID PRN. A-Fib: Eliquis 5 mg PO BID. Metoprolol as above. GERD: Protonix 40 mg PO BID. BPH: Folmax 0.4 mg PO QD. CODE STATUS: FULL CODE. DVT Prophylaxis: Eliquis. GI Prophylaxis: Protonix. Designated medical POA if patient is not able to make medical decisions for themselves: I have reviewed the following job service consultant notes: ED note. I have reviewed the results of the following tests: As above. I have ordered the following tests: As above. I have discussed the care of this patient with the following independent historian: I have independently interpreted the following test below: I have discussed the management of this patient with the following physician: Past Medical History Past Medical History: Atrial Fibrillation, Diabetes Mellitus, Hyperlipidemia History of Any Multi-Drug Resistant Organisms: None Reported Past Surgical History: Cholecystectomy Past Psychological History: No Psychological Hx Reported Smoking Status: Never smoker Past Alcohol Use History: Rare Past Drug Use History: None Reported Medications and Allergies Home Medications Medication Instructions Recorded Confirmed Type ALPRAZolam [Xanax] 0.25 mg PO BID PRN 06/13/24 06/13/24 History Apixaban [Eliquis] 5 mg PO BID 06/13/24 06/13/24 History Cephalexin [Keflex] 500 mg PO Q12HR 06/13/24 06/13/24 History Cyclobenzaprine [Flexeril] 10 mg PO HS PRN 06/13/24 06/13/24 History Empagliflozin [Jardiance] 25 mg PO DAILY 06/13/24 06/13/24 History FLUoxetine HCL [PROzac] 60 mg PO DAILY 06/13/24 06/13/24 History Fluticasone Nasal [place] [Flonase 1 spray EA NOSTRIL DAILY 06/13/24 06/13/24 History Nasal [place]] Losartan [Cozaar] 25 mg PO DAILY 06/13/24 06/13/24 History Lovastatin [Mevacor] 80 mg PO W/SUPPER 06/13/24 06/13/24 History Metoprolol Tartrate [Lopressor] 12.5 mg PO BID 06/13/24 06/13/24 History Pantoprazole [Protonix] 40 mg PO BID 06/13/24 06/13/24 History Semaglutide [Ozempic] 0.25 mg SQ Q7D 06/13/24 06/13/24 History Sildenafil Citrate [Viagra] 100 mg PO DAILY PRN 06/13/24 06/13/24 History Tamsulosin [Flomax] 0.4 mg PO DAILY 06/13/24 06/13/24 History glipiZIDE [Glucotrol] 20 mg PO AC-BID 06/13/24 06/13/24 History metFORMIN HCL [Glucophage] 1,000 mg PO BID 06/13/24 06/13/24 History Allergies Allergy/AdvReac Type Severity Reaction Status Date / Time lisinopril AdvReac Cough Verified 06/13/24 14:18 Physical Exam Vitals: Vital Signs Temp Pulse Resp BP Pulse Ox 06/13/24 09:42 97.4 F L 58 L 20 149/84 99 Intake and Output 06/12/24 06/13/24 06/13/24 22:59 06:59 14:59 Other: Weight 98.883 kg Results CBC & Chem 7: 06/13/24 10:07 06/13/24 10:07 Labs: Abnormal Lab Results - Last 24 Hours (Table) 06/13/24 06/13/24 06/13/24 Range/Units 09:45 10:07 10:07 Neutrophils # 8.3 H (1.3-7.7) k/uL Lymphocytes # 0.9 L (1.0-4.8) k/uL VBG pCO2 (37-51) mmHg VBG HCO3 (24-28) mmol/L Sodium 133 L (137-145) mmol/L Carbon Dioxide 17 L (22-30) mmol/L Creatinine 0.62 L (0.66-1.25) mg/dL Glucose 230 H (74-99) mg/dL POC Glucose (mg/dL) 174 H (70-110) mg/dL Urine Glucose (UA) (Negative) Urine Ketones (Negative) 06/13/24 06/13/24 Range/Units 10:07 11:01 Neutrophils # (1.3-7.7) k/uL Lymphocytes # (1.0-4.8) k/uL VBG pCO2 35 L (37-51) mmHg VBG HCO3 19 L (24-28) mmol/L Sodium (137-145) mmol/L Carbon Dioxide (22-30) mmol/L Creatinine (0.66-1.25) mg/dL Glucose (74-99) mg/dL POC Glucose (mg/dL) (70-110) mg/dL Urine Glucose (UA) 4+ H (Negative) Urine Ketones 2+ H (Negative)
[2024-06-13 15:07] LABS: Potassium 4.3 mmol/L (3.5-5.1)
[2024-06-13 15:08] LABS: African American GFR (CKD) >90 (>60 ml/min/1.73 sqM); Anion Gap 16 mmol/L; Blood Urea Nitrogen 12 mg/dL (9-20); Calcium 9.3 mg/dL (8.4-10.2); Carbon Dioxide 17 mmol/L (22-30); Chloride 98 mmol/L (98-107); Glucose 227 mg/dL (74-99); Non-African American GFR(CKD) >90 (>60 ml/min/1.73 sqM); Sodium 131 mmol/L (137-145)
[2024-06-13] MEDS ORDERED: Magnesium Replacement Protocol 1 EACH MISC MISCELLANE PRN (15:28)
[2024-06-13] MEDS ORDERED: Potassium Replacement Protocol 1 EACH MISC MISCELLANE PRN (15:28)
[2024-06-13] MEDS ORDERED: INSULIN REGULAR BOLUS (FROM DRIP BAG) IV ONE (15:28)
[2024-06-13] MEDS ORDERED: D5-0.45% NACL WITH KCL 20MEQ/L 1,000 ML IV SCH (15:30)
[2024-06-13] MEDS ORDERED: INSULIN REGULAR 100 UNIT in SODIUM CHLORIDE 0.9% 100 ML IV SCH (15:30)
[2024-06-13 15:47] LABS: Glucose,Whole Blood 256 mg/dL (70-110)
[2024-06-13 16:54] LABS: Glucose,Whole Blood 285 mg/dL (70-110)
[2024-06-13] MEDS: ATORVASTATIN 10 MG TAB PO SCH (17:55)
[2024-06-13] MEDS: INSULIN LISPRO (HumaLOG) 100 UNIT/ML 10 mL VL SQ SCH (17:57)
[2024-06-13 18:02] LABS: Glucose,Whole Blood 286 mg/dL (70-110)
[2024-06-13 18:52] LABS: African American GFR (CKD) >90 (>60 ml/min/1.73 sqM); Anion Gap 15 mmol/L; Blood Urea Nitrogen 12 mg/dL (9-20); Calcium 9.1 mg/dL (8.4-10.2); Carbon Dioxide 18 mmol/L (22-30); Chloride 97 mmol/L (98-107); Glucose 232 mg/dL (74-99); Non-African American GFR(CKD) >90 (>60 ml/min/1.73 sqM); Potassium 4.8 mmol/L (3.5-5.1); Sodium 130 mmol/L (137-145)
[2024-06-13 19:14] LABS: Glucose,Whole Blood 289 mg/dL (70-110)
[2024-06-13 19:54] VITALS: RESP 17
[2024-06-13 20:11] LABS: Appearance,Urine Clear (Clear); Bilirubin,Urine Negative (Negative); Blood,Urine Negative (Negative); Color,Urine Colorless; Glucose,Urine (UA) 4+ (Negative); Leukocyte Esterase,Urine Negative (Negative); Nitrite,Urine Negative (Negative); Protein,Urine Negative (Negative); Specific Gravity,Urine 1.029 (1.001-1.035); Urobilinogen,Urine <2.0 mg/dL (<2.0)
[2024-06-13 20:15] LABS: Ketones,Urine 3+ (Negative)
[2024-06-13 20:17] LABS: Glucose,Whole Blood 305 mg/dL (70-110)
[2024-06-13] MEDS: PANTOPRAZOLE 40 MG TABLET PO SCH (21:21)
[2024-06-13] MEDS: METOPROLOL TARTRATE 25 MG TAB PO SCH (21:22)
[2024-06-13] MEDS: INSULIN GLARGINE (LANTUS) 100 UNIT/ML SYR SQ SCH (21:22)
[2024-06-13] MEDS: APIXABAN 5 MG TAB PO SCH (21:22)
[2024-06-13] MEDS: ALPRAZolam 0.25 MG TAB PO PRN (22:15)
[2024-06-13] MEDS: LACTATED RINGERS 1,000 ML IV SCH (22:19)
[2024-06-14 01:19] LABS: African American GFR (CKD) >90 (>60 ml/min/1.73 sqM); Anion Gap 14 mmol/L; Blood Urea Nitrogen 10 mg/dL (9-20); Calcium 8.9 mg/dL (8.4-10.2); Carbon Dioxide 18 mmol/L (22-30); Chloride 100 mmol/L (98-107); Glucose 160 mg/dL (74-99); Non-African American GFR(CKD) >90 (>60 ml/min/1.73 sqM); Potassium 4.3 mmol/L (3.5-5.1); Sodium 132 mmol/L (137-145)
[2024-06-14 05:30] LABS: Glucose,Whole Blood 158 mg/dL (70-110)
[2024-06-14 07:08] VITALS: BP 139/87; PULSE 101; TEMP 97.8
[2024-06-14] MEDS: FLUoxetine HCL 20 MG CAP PO SCH (08:21)
[2024-06-14] MEDS: TAMSULOSIN 0.4 MG CAP.ER.24H PO SCH (08:21)
[2024-06-14] MEDS: LOSARTAN 25 MG TAB PO SCH (08:22)
--- NOTE | 2024-06-14 08:33 | P.DS ---
Providers Date of admission: 06/13/24 12:03 Expected date of discharge: 06/14/24 Attending physician: Jaron Landa MD [facility]: 73 year old M with PMH of DM, A-Fib, HLD presents to the ED after being told to come [facility] for abnormal lab work. Patient reports painful urination with urinary frequency, hesitancy and weak flow. He reports his A1c to be around 13. He reports BG ranging usually in the 200s. He is on Metformin and Glipizide. He is supposed to start taking Ozempic but has not had the chance to start yet. He denies any headache, LE edema, N/V, fever or chills, abdominal pain, chest pain, shortness of breath, palpitations, changes in bowel habits. No changes in appetite or weight. No numbness/weakness/tinging of the extremities. In the ED he underwent extensive evaluation. BP 149/84, HR 58, T 97.4F, RR 20, 99% on RA. CBC, Coag panel, CMP significant for Na 133, bicarb 17, Cr 0.62, glu 230. UA 4+ glucose and 2+ ketones. Acetone positive. Given 5 units IV insulin and admitted for further workup and management. 06/14 Patient was seen and examined. Feeling well no complaints. Given an additional 5 units IV insulin and Levemir 10 units SQ along with ISS last night. BMP shows Na 132, bicarb 18, Cr 0.54, glu 160. A1c 13.4. Discharge Plan: Discussed with patient. Likely culprit of DKA is Jardiance. Advised to discontinue. Advised hydration on discharge. Would benefit from low dose insulin such as Levemir 10 units SQ QD given uncontrolled A1c but would like to discuss with PCP. Follow up with PCP within 1-2 days of discharge. General: non toxic, no distress, appears at stated age Derm: warm, dry Head: atraumatic, normocephalic, symmetric Mouth: no lip lesion, mucus membranes moist Cardiovascular: Good distal perfusion in all 4 extremities Lungs: Breathing comfortably, no accessory muscle use Ext: no gross muscle atrophy, no edema, no contractures Neuro: no focal neuro deficits Psych: Alert and oriented. Discharge Diagnosis: Euglycemic DKA HTN HLD Depression and Anxiety A-Fib GERD BPH This complex discharge took 35 minutes to complete. Patient Condition at Discharge: Stable Plan - Discharge Summary Discharge Rx Participant: No New Discharge Prescriptions: Continue Pantoprazole [Protonix] 40 mg PO BID FLUoxetine HCL [PROzac] 60 mg PO DAILY ALPRAZolam [Xanax] 0.25 mg PO BID PRN PRN Reason: Anxiety Sildenafil Citrate [Viagra] 100 mg PO DAILY PRN PRN Reason: e.d. Semaglutide [Ozempic] 0.25 mg SQ Q7D glipiZIDE [Glucotrol] 20 mg PO AC-BID Losartan [Cozaar] 25 mg PO DAILY Apixaban [Eliquis] 5 mg PO BID Tamsulosin [Flomax] 0.4 mg PO DAILY Cephalexin [Keflex] 500 mg PO Q12HR Cyclobenzaprine [Flexeril] 10 mg PO HS PRN PRN Reason: Muscle Spasm metFORMIN HCL [Glucophage] 1,000 mg PO BID Lovastatin [Mevacor] 80 mg PO W/SUPPER Metoprolol Tartrate [Lopressor] 12.5 mg PO BID Fluticasone Nasal [place] [Flonase Nasal [place]] 1 spray EA NOSTRIL DAILY Discontinued Empagliflozin [Jardiance] 25 mg PO DAILY Discharge Medication List ALPRAZolam [Xanax] 0.25 mg PO BID PRN 06/13/24 [History] Apixaban [Eliquis] 5 mg PO BID 06/13/24 [History] Cephalexin [Keflex] 500 mg PO Q12HR 06/13/24 [History] Cyclobenzaprine [Flexeril] 10 mg PO HS PRN 06/13/24 [History] FLUoxetine HCL [PROzac] 60 mg PO DAILY 06/13/24 [History] Fluticasone Nasal [place] [Flonase Nasal [place]] 1 spray EA NOSTRIL DAILY 06/13/24 [History] Losartan [Cozaar] 25 mg PO DAILY 06/13/24 [History] Lovastatin [Mevacor] 80 mg PO W/SUPPER 06/13/24 [History] Metoprolol Tartrate [Lopressor] 12.5 mg PO BID 06/13/24 [History] Pantoprazole [Protonix] 40 mg PO BID 06/13/24 [History] Semaglutide [Ozempic] 0.25 mg SQ Q7D 06/13/24 [History] Sildenafil Citrate [Viagra] 100 mg PO DAILY PRN 06/13/24 [History] Tamsulosin [Flomax] 0.4 mg PO DAILY 06/13/24 [History] glipiZIDE [Glucotrol] 20 mg PO AC-BID 06/13/24 [History] metFORMIN HCL [Glucophage] 1,000 mg PO BID 06/13/24 [History] Follow up Appointment(s)/Referral(s): Froilan Burrell DO [Primary Care Provider] - 1-2 days Activity/Diet/Wound Care/Special Instructions: Diet: Diabetic Discontinue Empagliflozin (Jardiance). Drink plenty of water. Discharge Disposition: HOME SELF-CARE
[2024-06-14] MEDS ORDERED: ENOXAPARIN 40 MG/0.4 ML SYRINGE SQ SCH (09:00)
[2024-06-14 09:43] LABS: Basophils # (A) 0.02 X 10*3/uL (0.00-0.10); Basophils % (A) 0.2 %; Eosinophils # (A) 0.04 X 10*3/uL (0.04-0.35); Eosinophils % (A) 0.4 %; HCT 41.2 % (39.6-50.0); HGB 13.2 g/dL (13.0-17.0); Lymphocytes # (A) 1.17 X 10*3/uL (0.90-5.00); Lymphocytes % (A) 10.3 %; MCH 30.1 pg (27.0-32.0); MCV 94.1 FL (80.0-97.0); Mean Platelet Volume 8.7 FL (9.5-12.2); Monocytes # (A) 0.93 X 10*3/uL (0.20-1.00); Monocytes % (A) 8.2 %; NRBC Per 100 WBC 0 X 10*3/uL (0.00-0.01); Neutrophils # (A) 9.17 X 10*3/uL (1.80-7.70); Neutrophils % (A) 80.5 %; Platelet Count 378 X 10*3/uL (140-440); RBC 4.38 X 10*6/uL (4.40-5.60); RDW 14.3 % (11.5-14.5); WBC 11.38 X 10*3/uL (4.50-10.00)
[2024-06-14 14:28] LABS: BUN/Creat Ratio 15.14 Ratio (12.00-20.00); Blood Urea Nitrogen 10.6 mg/dL (9.0-27.0); Calcium 8.6 mg/dL (8.7-10.3); Carbon Dioxide 15.9 mmol/L (21.6-31.8); Chloride 101 mmol/L (96-109); Glucose 190 mg/dL (70-110); Magnesium 1.7 mg/dL (1.5-2.4); Potassium 4.3 mmol/L (3.5-5.5); Sodium 133 mmol/L (135-145)
== END 2024-06-14 10:00 | disposition home or self-care (01) ==
LOC: EC 09:41 → 6NMEDSUR 12:03
PROVIDERS: ADMIT Internal Medicine; ATTEND Internal Medicine
DX: E11.10 Type 2 diabetes mellitus with ketoacidosis without coma (principal); E78.5 Hyperlipidemia, unspecified; I10 Essential (primary) hypertension; I48.91 Unspecified atrial fibrillation; K21.9 Gastro-esophageal reflux disease without esophagitis; N40.1 Benign prostatic hyperplasia with lower urinary tract symptoms; R35.0 Frequency of micturition; R39.11 Hesitancy of micturition; R30.9 Painful micturition, unspecified; R39.12 Poor urinary stream; F32.A Depression, unspecified; F41.9 Anxiety disorder, unspecified; Z79.01 Long term (current) use of anticoagulants; Z79.84 Long term (current) use of oral hypoglycemic drugs; Z79.899 Other long term (current) drug therapy; Z88.8 Allergy status to other drugs, medicaments and biological substances
CPT/HCPCS: 99284; 36415; 80053; 80048 ×2; 82803; 82009; 83735; 85025 ×2; 81003; 83036; G0378 ×2